=== PATIENT | male | born 1980 | race Caucasian/White ===

== ENCOUNTER 2019-03-26 01:37 | Emergency (ER) | payer SELFPAY ==
[~2019-03-26] VITALS: Ht 188 cm; Wt 117.9 kg
[2019-03-26] MEDS ORDERED: CLIN300C8 PO (02:12)
--- NOTE | 2019-03-26 02:12 | PHYS DOC ---
Past History Past Medical History: No Pertinent History Past Surgical History: Tonsillectomy Smoking: Non-smoker Alcohol Use: None Drug Use: None Adult General Chief Complaint Chief Complaint: INSECT BITE HPI HPI 38-year-old male presents with 2-3 day history of left ankle redness and swelling which has become worse. Reports initially started with some redness and was itchy. Patient went to his employer's health clinic and was prescribed some anti-itch cream but was advised if symptoms became worse or for increased redness to present to the ER or his physician for further evaluation. Patient reports he thinks it might have been secondary to an insect bite. Reports occurred while he was at work. Denies seeing any insects at that time. Denies fever or chills. Denies diabetes. Review of Systems Review of Systems Constitutional: Denies fever or chills Eyes: Denies redness or eye pain HENT: Denies nasal congestion or sore throat Respiratory: Denies cough or shortness of breath Cardiovascular: Denies chest pain or palpitations GI: Denies abdominal pain, nausea, or vomiting : Denies dysuria or hematuria Musculoskeletal: Denies back pain or joint pain Integument: Reports left ankle swelling and redness Neurologic: Denies headache, focal weakness or sensory changes Complete systems were reviewed and found to be within normal limits, except as documented in this note. Allergies Allergies Allergies Coded Allergies Type Severity Reaction Last Updated Verified No Known Drug Allergies 03/26/19 No Physical Exam Physical Exam Constitutional: Well developed, well nourished, no acute distress, non-toxic appearance HENT: Normocephalic, atraumatic Eyes: Conjunctiva normal, no discharge Neck: Normal range of motion, supple Lungs & Thorax: No respiratory distress, no auditory wheezing Skin: Warm, dry, 4cm x 3cm area to medial aspect of right ankle with 2 central clear blisters, left ankle later 0.3cm ulceration without surrounding erythema, tender to palpation. Extremities: No tenderness, ROM intact, no edema, left ankle lesion/erythema as above Neurologic: Alert and oriented X 3, no focal deficits noted Psychologic: Affect normal, judgement normal Current Patient Data Vital Signs Vital Signs Date Time Temp Pulse Resp B/P (MAP) Pulse Ox O2 Delivery O2 Flow Rate FiO2 03/26/19 01:54 98.4 97 18 96 Room Air EKG EKG [] Radiology/Procedures Radiology/Procedures [] Course & Med Decision Making Course & Med Decision Making Patient presents with history of present illness and physical exam concerning for possible insect bite with surrounding erythema. Empiric long-acting steroid provided as well as empiric antibiotic therapy. Prescription for continued antibiotic therapy provided. Patient stable for discharge with outpatient follow-up with PCP. Discussed findings and plan with patient, who acknowledges understanding and agreement. Dragon Disclaimer Dragon Disclaimer This electronic medical record was generated, in whole or in part, using a voice recognition dictation system. Departure Departure: Impression: Primary Impression: Insect bite Disposition: HOME, SELF-CARE Condition: STABLE Referrals: PCP,NO (PCP) Patient Instructions: Insect Bite, Arhm-cg-Gvqs Scripts Clindamycin Hcl (CLINDAMYCIN HCL) 300 Mg Capsule 1 CAP PO TID for infection for 7 Days, #21 CAP Prov: ANA MARIA JO DO 03/26/19 Problem Qualifiers Primary Impression: Insect bite Encounter type: initial encounter Site of insect bite: ankle Laterality: left Qualified Codes: S90.562A - Insect bite (nonvenomous), left ankle, initial encounter; W57.XXXA - Bitten or stung by nonvenomous insect and other nonvenomous arthropods, initial encounter ANA MARIA JO DO Mar 26, 2019 02:12
[2019-03-26] MEDS ORDERED: CLINDAMYCIN HCL 150 MG CAPSULE ONE (02:17)
[2019-03-26] MEDS ORDERED: DEXAMETHASONE 4 MG TABLET PO ONE (02:30)
[2019-03-26] MEDS ORDERED: CLINDAMYCIN HCL 150 MG CAPSULE PO ONE (02:30)
== END 2019-03-26 02:35 | disposition home or self-care (01) ==
LOC: ER 01:37
DX: S90.562A Insect bite (nonvenomous), left ankle, initial encounter (principal); W57.XXXA Bitten or stung by nonvenomous insect and other nonvenomous arthropods, initial encounter; Y93.89 Activity, other specified; Y92.89 Other specified places as the place of occurrence of the external cause; Y99.8 Other external cause status
CPT/HCPCS: 99283; J8540